=== PATIENT | female | born 1960 | race Caucasian/White ===

== ENCOUNTER → 2021-01-17 | Outpatient (CLI) | payer MEDICARE | END | disposition home or self-care (01) | LOC: PETCFH 09:32 | PROVIDERS: ATTEND Internal Medicine Hematology & Oncology | DX: C18.2 Malignant neoplasm of ascending colon (principal); J84.10 Pulmonary fibrosis, unspecified; N85.8 Other specified noninflammatory disorders of uterus | CPT/HCPCS: 78815; A9552 ==